=== PATIENT | female | born 1945 | race Caucasian/White ===

== ENCOUNTER 2019-07-03 19:10 | Inpatient (IN) | payer MEDICARE ==
[~2019-07-03] VITALS: Ht 162.6 cm; Wt 45.4 kg
[~2019-07-03 19:10] MED LIST: ADVAIR 250-501 EACH INH; ASPIR 8181 MG PO; ATROVENT15 ML; ENDOCET 10-3251 EACH PO; FLOVENT DISKUS50 MCG; LEVALBUTER1.25 MG/3 INH; LOVASTATIN40 MG PO; MECLIZINE HCL12.5 MG PO; MEGACE ES625 MG/5 M PO; MEGESTROL400 MG/10 PO; METOPROLOL SUCC25 MG PO; MIRTAZAPINE15 MG PO; MOVANTIK PO; NALOXEGOL PO; NEXIUM40 MG PO; NICODERM CQ1 EAC1 TD; RANITIDINE HCL300 MG PO; TORSEMIDE10 MG PO; VASOTEC10 M1 PO; VASOTEC10 MG PO; ZOFRAN ODT4 MG PO
[2019-07-03] MEDS ORDERED: ALBUTEROL/IPRATROPIUM 3 ML NEB ONE (19:53)
[2019-07-03 19:56] LABS: BASOPHILS # (AUTO) 0.1 (0.0-0.1); BASOPHILS % 0.7 % (0.0-1.0); EOSINOPHILS # (AUTO) 0.1 (0.0-0.4); EOSINOPHILS % 0.4 % (0.0-6.0); HEMATOCRIT 39.4 % (34.2-44.1); HEMOGLOBIN 11.3 g/dL (12.0-16.0); LYMPHOCYTES # (AUTO) 1.3 (1.0-3.2); LYMPHOCYTES % 10.8 % (18.0-39.1); MEAN CORPUSCULAR HEMOGLOBIN 28.2 pg (28-32); MEAN CORPUSCULAR HGB CONC 28.7 g/dL (31-35); MEAN CORPUSCULAR VOLUME 98.3 fL (81-99); MONOCYTES # (AUTO) 0.6 (0.2-0.8); MONOCYTES % 5.5 % (4.4-11.3); NEUTROPHILS # (AUTO) 9.4 (2.1-6.9); NEUTROPHILS % 81.6 % (38.7-80.0); PLATELET COUNT 254 x10e3/uL (140-360); RED BLOOD COUNT 4.01 x10e6/uL (3.6-5.1); RED CELL DISTRIBUTION WIDTH 18.5 % (11.7-14.4)
[2019-07-03 19:58] LABS: ABG HCO3 43 mmol/L (23-28); ABG PCO2 110 mmHg (41-51); ABG PO2 56 mmHg (80-105)
[2019-07-03] MEDS ORDERED: ALBUTEROL/IPRATROPIUM 3 ML NEB NEB ONE (20:00)
--- NOTE | 2019-07-03 20:09 | Diagnostic Imaging Report ---
Examination: Single AP view of the chest. COMPARISON: Portable AP chest 10/02/2016 INDICATION: Shortness of breath IMPRESSION: 1. Lines and Tubes: None 2. Stable hyperinflated lungs consistent with emphysematous changes. Stable mild prominence of the interstitial markings likely reflecting chronic interstitial changes. Stable bilateral apical mild scarring. No consolidation or effusion. 3. Cardiomediastinal silhouette is normal. Pulmonary vasculature is normal. Tortuous aorta. Atherosclerotic calcification of the aortic arch. 4. No acute bony abnormalities. Signed by: Dr. Franc Younger M.D. on 07/03/2019 8:06 PM
[2019-07-03] MEDS ORDERED: CEFEPIME HCL 1 GM VIAL IV SCH (20:45)
[2019-07-03] MEDS ORDERED: AZITHROMYCIN 500MG/NS 250 ML 250 ML IV ONE (20:45)
[2019-07-03] MEDS ORDERED: CEFEPIME 1GM/NS 0.9% 50 ML 50 ML IV ONE (20:45)
[2019-07-03 20:49] LABS: CLARITY,URINE CLOUDY (CLEAR); COLOR,URINE YELLOW (YELLOW); LEUKOCYTE ESTERASE ,URINE SMALL (NEGATIVE)
[2019-07-03 20:50] LABS: BILIRUBIN,URINE NEGATIVE (NEGATIVE); KETONES,URINE NEGATIVE (NEGATIVE); NITRITE,URINE NEGATIVE (NEGATIVE); PROTEIN,URINE DIPSTICK 2+ (NEGATIVE); URINE UROBILINOGEN 0.2 mg/dL (0.2 - 1)
[2019-07-03 20:50] LABS: ABG HCO3 44 mmol/L (23-28); ABG PCO2 101 mmHg (41-51); ABG PH 7.24 (7.31-7.41); ABG PO2 90 mmHg (80-105)
[2019-07-03 21:05] LABS: BACTERIA,URINE MODERATE /HPF; EPITHELIAL CELLS,URINE MANY /LPF; RBC,URINE 21-50 /HPF (0-5)
[2019-07-03] MEDS ORDERED: SODIUM CHLORIDE 0.9% 1000ML 1,000 ML IV ONE (21:15)
[2019-07-03] MEDS ORDERED: SODIUM CHLORIDE 0.9% 1000ML 1,000 ML ONE (21:16)
[2019-07-03 21:26] LABS: ALBUMIN 3.1 g/dL (3.5-5.0); ALBUMIN/GLOBULIN RATIO 0.7 (0.8-2.0); ANION GAP 19.8 mmol/L (8-16); CALCIUM 9.2 mg/dL (8.4-10.2); CREATININE, SERUM 1.22 mg/dL (0.57-1.11); POTASSIUM 4.8 mmol/L (3.5-5.1)
[2019-07-03 21:32] LABS: CREATINE KINASE MB 2.6 ng/mL (0-5.0)
[2019-07-03] MEDS ORDERED: ENALAPRIL MALEA20 MG PO (22:59)
[2019-07-03] MEDS ORDERED: ALBUTEROL/IPRATROPIUM 3 ML NEB NEB PRN (23:00)
[2019-07-03] MEDS ORDERED: BACLOFEN5 MG PO (23:04)
[2019-07-03] MEDS ORDERED: TRELEGY ELLIPT1 EACH INH (23:04)
[2019-07-03 23:45] VITALS: BP_SYST 145; BP_SYST 149; BP_DIAS 106; BP_DIAS 92
[2019-07-04] VITALS (25 sets, daily range): BP systolic 99–202; BP diastolic 45–145
[2019-07-04 01:13] LABS: ABG PH 7.28 (7.31-7.41)
[2019-07-04 01:14] LABS: ABG HCO3 42 mmol/L (23-28); ABG PCO2 90 mmHg (41-51); ABG PO2 88 mmHg (80-105)
[2019-07-04] MEDS ORDERED: CEFEPIME 1GM/NS 0.9% 50 ML 50 ML IV ONE (01:32)
[2019-07-04 02:51] LABS: ABG HCO3 43 mmol/L (23-28); ABG PCO2 83 mmHg (41-51); ABG PH 7.32 (7.31-7.41); ABG PO2 80 mmHg (80-105)
[2019-07-04] MEDS ORDERED: CEFEPIME HCL 1 GM VIAL IV SCH (03:00)
[2019-07-04 05:37] LABS: BASOPHILS % 0.4 % (0.0-1.0); EOSINOPHILS # (AUTO) 0.1 (0.0-0.4); EOSINOPHILS % 1.2 % (0.0-6.0); HEMATOCRIT 32.8 % (34.2-44.1); HEMOGLOBIN 9.5 g/dL (12.0-16.0); LYMPHOCYTES # (AUTO) 1.6 (1.0-3.2); LYMPHOCYTES % 14.6 % (18.0-39.1); MEAN CORPUSCULAR HEMOGLOBIN 27.9 pg (28-32); MEAN CORPUSCULAR VOLUME 96.5 fL (81-99); MONOCYTES # (AUTO) 0.9 (0.2-0.8); MONOCYTES % 8.1 % (4.4-11.3); NEUTROPHILS # (AUTO) 8.3 (2.1-6.9); NEUTROPHILS % 75.2 % (38.7-80.0); PLATELET COUNT 190 x10e3/uL (140-360); RED CELL DISTRIBUTION WIDTH 18.4 % (11.7-14.4)
[2019-07-04 05:45] LABS: ANION GAP 13.3 mmol/L (8-16); BLOOD UREA NITROGEN 12 mg/dL (7-26); BUN/CREATININE RATIO 13 (6-25); CALCIUM 8.4 mg/dL (8.4-10.2); CARBON DIOXIDE 37 mmol/L (22-29); CHLORIDE 95 mmol/L (98-107); EST GLOMERULAR FILTRATION RATE > 60 ML/MIN (60-); GLUCOSE 80 mg/dL (74-118); POTASSIUM 4.3 mmol/L (3.5-5.1); SODIUM 141 mmol/L (136-145)
--- NOTE | 2019-07-04 06:24 | NUR ---
Consult called to Dr Peña. I spoke to Shahbaz
[2019-07-04] MEDS ORDERED: ACETAMINOPHEN PO PRN (06:45)
[2019-07-04] MEDS ORDERED: OXYCODONE HCL PO PRN (06:45)
[2019-07-04] MEDS ORDERED: MOVANTIK 25 MG PO PRN ×2 (06:45→07:15)
[2019-07-04] MEDS ORDERED: ONDANSETRON HCL 4 MG ORAL DISINTEGRATING TAB PO PRN (06:45)
[2019-07-04] MEDS ORDERED: BACLOFEN PO PRN (06:45)
[2019-07-04] MEDS ORDERED: SODIUM CHLORIDE 0.9% 1000ML 1,000 ML IV SCH (07:00)
[2019-07-04] MEDS ORDERED: BACLOFEN 10 MG TAB PO PRN (07:00)
[2019-07-04] MEDS: TORSEMIDE 10 MG TAB PO SCH (09:00)
[2019-07-04] MEDS ORDERED: FAMOTIDINE 20 MG/2 ML VIAL IV SCH (09:00)
[2019-07-04] MEDS ORDERED: ENOXAPARIN SODIUM INJ 100 MG/ML SYR SC SCH (09:00)
[2019-07-04] MEDS ORDERED: ENALAPRIL MALEATE 40 MG PO SCH (09:00)
[2019-07-04] MEDS ORDERED: MECLIZINE HCL 12.5 MG TAB PO SCH (09:00)
[2019-07-04] MEDS ORDERED: LEVALBUTEROL HCL SOLN NEBU 1.25 MG/3 ML NEB INH SCH (09:00)
[2019-07-04] MEDS: PANTOPRAZOLE SOD 40 MG TABEC PO SCH (09:28)
[2019-07-04] MEDS: METOPROLOL SUCCINATE 25 MG TAB XL PO SCH (09:29)
[2019-07-04] MEDS: ENALAPRIL MALEATE 10 MG TAB PO SCH (09:29)
[2019-07-04] MEDS: ENOXAPARIN 30 MG/0.3 ML SYR SC SCH (09:30)
[2019-07-04] MEDS: OXYCODONE/ACETAMINOPHEN 5-325 1 EACH TABLET PO PRN ×2 (09:31→17:54)
[2019-07-04] MEDS: CEFEPIME 1GM/NS 0.9% 50 ML 50 ML IV SCH (11:00)
[2019-07-04 11:13] LABS: % IRON SATURATION 14 % (15-50); IRON 28 ug/dL (50-170); TOTAL IRON BINDING CAPACITY 203 ug/dL (261-478); TRANSFERRIN 145 mg/dL (180-382)
[2019-07-04] MEDS ORDERED: FUROSEMIDE INJ 10 MG/ML 2 ML VIAL IV NR (11:15)
[2019-07-04] MEDS ORDERED: METHYLPREDNISOLONE SOD SUCC 40 MG/ML VIAL 1ML IV SCH (12:00)
[2019-07-04] MEDS: LEVALBUTEROL HCL SOLN NEBU 1.25 MG/3 ML NEB INH SCH ×3 (13:45→22:00)
[2019-07-04] MEDS: IPRATROPIUM BROMIDE 0.02% 2.5 ML NEB NEB SCH ×2 (14:20→19:10)
--- NOTE | 2019-07-04 15:18 | History and Physical ---
The patient is a 74-year-old female, who comes in with acute respiratory failure. HISTORY OF PRESENTING ILLNESS: This is Ms. Tamera Reddy with a history of severe end-stage COPD, was in usual state of health until the patient started to decline with lower oxygen saturation up to 80% to 85% at home on 2 L of oxygen. She cracked up her oxygen and called the office yesterday. The patient seemed to be very hypoxic and was told to go to the emergency room. The patient arrived and was found to have acute respiratory failure, put on BiPAP and sent to the ICU. PAST MEDICAL HISTORY: History of hypertension, history of end-stage COPD, history of cachexia with severe protein-energy malnutrition, history of depression, history of nicotine dependence, history of chronic low back pain, and history of hypotension. MEDICATIONS: She takes at home, baclofen 5 mg t.i.d. enalapril 40 mg daily, esomeprazole 40 mg daily, and fluticasone 50 mcg daily. The patient takes ipratropium bromide 50 mL spray twice a day nasal spray and also does levalbuterol 1.25 inhalations q.4 hours, meclizine 12.5 mg as needed for dizziness, megestrol 400 mg for malnutrition, metoprolol 25 mg ER, mirtazapine 50 mg daily, Zofran q.6 hours as needed, oxycodone for pain management q.6 hours, ranitidine 300 mg at bedtime, and torsemide 10 mg. The patient also takes Movantik 25 mg for opioid-induced constipation. PAST SURGICAL HISTORY: Cholecystectomy and the patient had hysterectomy too. FAMILY HISTORY: Positive for stroke and also COPD. ALLERGIES: NO DRUG ALLERGIES. REVIEW OF SYSTEMS: Positive for shortness of breath. No chest pain. No nausea, vomiting, or diarrhea. Positive for some constipation. No rectal bleeding. No hematochezia. No hematemesis either. PHYSICAL EXAMINATION: GENERAL: The patient is severely cachectic, short of breath, and hypoxic. HEENT: Normocephalic and atraumatic. BiPAP is in place. CVS: S1 and S2, tachy. Ejection systolic murmur present. LUNGS: Decreased air entry into all lung morales. Positive audible expiratory wheezes. ABDOMEN: Nontender and nondistended. EXTREMITIES: No clubbing, no cyanosis, and/or no edema. LABORATORY VALUES: Initial white count is 11,000, hemoglobin of 11.3, and hematocrit of 39.4. Chemistry shows sodium of 140, potassium of 4.8, BUN of 14, and creatinine of 1.22. Lactic acid initially was 3.9 and BNP was 1313. Urine shows yellow cloudy with white count and rbc's present. MICROBIOLOGY: Blood cultures are pending. IMAGING STUDIES: Chest x-ray showed stable hyperinflated lungs consistent with emphysematous changes, mediastinal silhouette is normal. Pulmonary vasculature is normal. ASSESSMENT: Tamera Reddy with, 1. Severe sepsis. 2. Chronic obstructive pulmonary disease exacerbation. 3. End-stage chronic obstructive pulmonary disease with O2 dependency. 4. Hypertension. 5. Cachexia. 6. Severe protein-energy malnutrition. 7. Acute renal injury. 8. Generalized debility with deconditioning. PLAN: The patient is currently on cefepime and azithromycin. She will be started on enoxaparin for DVT prophylaxis. She has been given some fluid replacement and resuscitation. The patient has been put on GI prophylaxis with her esomeprazole and restart her home medications and Protonix daily will be given. The patient is back on albuterol and azithromycin has been started. The patient is also on Solu-Medrol 40 mg q.6 hours as needed. Further recommendation per clinical course. A consult with Dr. Peña has been done. The patient will be in the hospital and kept in ICU at this point of time. For further information, look in the chart. MD KARLA Gill/MODL /[id number]
[2019-07-04] MEDS ORDERED: FUROSEMIDE INJ 10 MG/ML 4 ML VIAL IV NR (16:00)
--- NOTE | 2019-07-04 18:19 | Consultation ---
DATE OF CONSULTATION: 07/04/2019 Pulmonary Consultation The patient of Dr. Carmelo Singletary. HISTORY OF PRESENT ILLNESS: Charming, but unfortunate 74-year-old woman admitted with progressive shortness of breath over 24 hours; productive cough; hypertension; history of COPD, stopped smoking, using e-cigarettes and then with the e-cigarette adverse reaction reports she started smoking back again; has home oxygen. Daughter is a respiratory therapist. Her legs have been swollen for six months despite home oxygen. No known allergies. She was told not to take iodine because of decline in renal function and history of stable aortic aneurysm. PAST SURGICAL HISTORY: She has had gallbladder surgery and hysterectomy. SOCIAL HISTORY: She is driving a school bus. Born in [place]. FAMILY HISTORY: Positive for unknown cancers. PHYSICAL EXAMINATION: GENERAL: This is a frail white female, in no acute distress, on BiPAP. VITAL SIGNS: Temperature 97.5, pulse 108 and regular, respirations 25, and blood pressure 132/80. HEAD: Normocephalic and atraumatic. Some temporal wasting. LUNGS: Diminished breath sounds bilaterally. HEART: Regular rhythm. ABDOMEN: Nontender. EXTREMITIES: Edematous. IMPRESSION: 1. Mild cellulitis. 2. Urinary tract infection. 3. Purulent bronchitis. 4. Respiratory failure. PLAN: Moderate dose course of steroids, antibiotics, and bronchodilator. Cigarette smoking cessation. Prophylactic Lovenox. Echocardiogram and venous Doppler pending. Thank you for this kind referral. MD RADHA Franklin/DANYELL /[id number]
[2019-07-04] MEDS: METHYLPREDNISOLONE SOD SUCC 40 MG/ML VIAL 1ML IV SCH (19:00)
[2019-07-04] MEDS: MIRTAZAPINE 15 MG TAB PO SCH (20:43)
[2019-07-04] MEDS ORDERED: AZITHROMYCIN 500MG/NS 250 ML 250 ML IV SCH (23:00)
[2019-07-05] VITALS (24 sets, daily range): BP systolic 97–172; BP diastolic 53–100
[2019-07-05] MEDS: OXYCODONE/ACETAMINOPHEN 5-325 1 EACH TABLET PO PRN ×3 (01:10→19:14)
[2019-07-05] MEDS: IPRATROPIUM BROMIDE 0.02% 2.5 ML NEB NEB SCH ×4 (01:15→20:15)
[2019-07-05 05:54] LABS: BASOPHILS % 0.3 % (0.0-1.0); EOSINOPHILS # (AUTO) 0.1 (0.0-0.4); EOSINOPHILS % 1.7 % (0.0-6.0); HEMATOCRIT 34.6 % (34.2-44.1); HEMOGLOBIN 10.2 g/dL (12.0-16.0); LYMPHOCYTES # (AUTO) 0.6 (1.0-3.2); LYMPHOCYTES % 10.6 % (18.0-39.1); MEAN CORPUSCULAR HEMOGLOBIN 27.6 pg (28-32); MEAN CORPUSCULAR HGB CONC 29.5 g/dL (31-35); MEAN CORPUSCULAR VOLUME 93.8 fL (81-99); MONOCYTES # (AUTO) 0.3 (0.2-0.8); MONOCYTES % 4.7 % (4.4-11.3); NEUTROPHILS # (AUTO) 4.9 (2.1-6.9); NEUTROPHILS % 82.5 % (38.7-80.0); PLATELET COUNT 183 x10e3/uL (140-360); RED BLOOD COUNT 3.69 x10e6/uL (3.6-5.1); RED CELL DISTRIBUTION WIDTH 18.3 % (11.7-14.4)
[2019-07-05] MEDS: METHYLPREDNISOLONE SOD SUCC 40 MG/ML VIAL 1ML IV SCH ×2 (06:09→18:48)
[2019-07-05 06:44] LABS: ALBUMIN 2.9 g/dL (3.5-5.0); ALBUMIN/GLOBULIN RATIO 0.8 (0.8-2.0); ALKALINE PHOSPHATASE 65 IU/L (40-150); ANION GAP 15.5 mmol/L (8-16); BLOOD UREA NITROGEN 12 mg/dL (7-26); BUN/CREATININE RATIO 11 (6-25); CALCIUM 8.6 mg/dL (8.4-10.2); CHLORIDE 83 mmol/L (98-107); CREATININE, SERUM 1.13 mg/dL (0.57-1.11); EST GLOMERULAR FILTRATION RATE 47 ML/MIN (60-); GLUCOSE 108 mg/dL (74-118); POTASSIUM 4.5 mmol/L (3.5-5.1); SODIUM 140 mmol/L (136-145)
[2019-07-05 06:52] LABS: ALANINE AMINOTRANSFERASE < 6 IU/L (0-55); CARBON DIOXIDE 46 mmol/L (22-29)
[2019-07-05] MEDS: LEVALBUTEROL HCL SOLN NEBU 1.25 MG/3 ML NEB INH SCH ×3 (07:00→20:15)
[2019-07-05] MEDS: METOPROLOL SUCCINATE 25 MG TAB XL PO SCH (07:55)
[2019-07-05] MEDS: ENOXAPARIN 30 MG/0.3 ML SYR SC SCH (07:55)
[2019-07-05] MEDS: PANTOPRAZOLE SOD 40 MG TABEC PO SCH (07:55)
[2019-07-05] MEDS: NICOTINE 14 MG/EA PATCH TOP SCH (07:55)
[2019-07-05] MEDS: AZITHROMYCIN 250 MG TAB PO SCH (07:55)
[2019-07-05] MEDS: ENALAPRIL MALEATE 10 MG TAB PO SCH (07:55)
[2019-07-05] MEDS ORDERED: FUROSEMIDE 20 MG TAB PO SCH (09:00)
[2019-07-05] MEDS ORDERED: ACETAZOLAMIDE SODIUM 500 MG/VIAL IV NR (09:15)
[2019-07-05] MEDS: TORSEMIDE 10 MG TAB PO SCH (09:40)
--- NOTE | 2019-07-05 09:49 | Progress Note ---
DATE: 07/05/2019 SUBJECTIVE: A 74-year-old female who came in yesterday with respiratory failure. The patient currently is on O2, BiPAP all night long. She is feeling better. Complains of some back pain. Otherwise, no complaints. No chest pain. Positive shortness of breath, back to baseline. MEDICATIONS: She is on: 1. Solu-Medrol 40 mg twice a day. 2. Oxycodone. 3. Cefepime. 4. Mirtazapine 50 mg. 5. Enoxaparin 30 mg. 6. The patient is also on metoprolol 25 mg. 7. Torsemide 10 mg daily. 8. She is taking albuterol/Atrovent treatments while in the hospital. OBJECTIVE: VITAL SIGNS: Temperature is 99.0, pulse of 79, respirations 25, blood pressure is 159/93, and O2 by BiPAP. HEENT: Normocephalic and atraumatic. Pupils are reactive to light and accommodation. CVS: S1 and S2 normal. Regular rate and rhythm. ABDOMEN: Nontender and nondistended. LUNGS: Decreased air entry into all lung morales. Positive for some respiratory wheezes. EXTREMITIES: No clubbing. No cyanosis. Positive for edema. LABORATORY DATA: White count is 5.92, hemoglobin of 10.2, hematocrit of 34.6. Chemistry, sodium is pending. Potassium is pending. Iron was 28, TIBC 203, and transferrin is 14. Blood gases done yesterday; pH 7.3, pCO2 of 83, and PO2 of 80. ASSESSMENT: 1. Acute exacerbation of chronic obstructive pulmonary disease. 2. Urine tract infection. 3. Respiratory failure. 4. Emphysema with exacerbation. 5. Hypertension. 6. Hyperlipidemia. 7. History of nicotine abuse in the past. PLAN: Continue with Solu-Medrol, we will taper off. The patient is on antibiotic. White count is better. Also diagnosis would be sepsis, which is better and leukocytosis is better. The patient is improved. Further recommendation per clinical course. We can transfer out of ICU if okay with Pulmonology. MD KARLA Gill/MODL /[id number]
[2019-07-05] MEDS: CEFEPIME 1GM/NS 0.9% 50 ML 50 ML IV SCH ×3 (11:53→23:00)
--- NOTE | 2019-07-05 16:36 | Consultation ---
DATE OF CONSULTATION: 07/05/2019 Cardiology Consultation REASON FOR CONSULTATION: Evaluate cardiac status. CHIEF COMPLAINT: Shortness of breath, respiratory failure. HISTORY OF PRESENT ILLNESS: Ms. Reddy is a 74-year-old lady with history of hypertension, advanced COPD on 2-3 L of home oxygen at baseline, history of abdominal aortic aneurysm, DJD, and unilateral kidney, who presents to this institution with difficulty breathing, or and in cathy respiratory failure. Her symptoms started approximately 3 days ago where she became short of breath at rest and had difficulty maintaining her breathing. She has had off and on issues with leg swelling and when she came in, she was febrile, feeling malaise, and was septic. She was noted to have worsening erythema and swelling in her both legs as well. Upon arrival, the patient was noted to have ABG showing a pH of 7.1, PCO2 of 110, and PO2 of 56, indicating acute on chronic hypoxic and hypercapnic respiratory failure. She was tried and treated with antibiotics, started on salvage BiPAP therapy and given a dose of IV diuretics with Lasix. Since that time, lower extremity venous duplex done and read by another provider reveals no DVT and echocardiogram reveals preserved left ventricular function; however, she has some evidence of RV dysfunction, likely on account of secondary to her pulmonary status. PAST MEDICAL HISTORY: 1. Advanced COPD, on home oxygen. 2. Abdominal aortic aneurysm, under surveillance. 3. History of diverticulitis. 4. 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 5. History of unilateral kidney. PAST SURGICAL HISTORY: 1. History of hysterectomy. 2. History of cholecystectomy. 3. History of tonsillectomy. FAMILY HISTORY: Mother and father in their 70s. Mom had cervical cancer and hypertension. Father of prostate cancer and hypertension and had a bicuspid aortic valve. SOCIAL HISTORY: She is a current smoker, started in her teens, heavy extensive use. Denies any alcohol or illicit drug use. ALLERGIES: NO KNOWN DRUG ALLERGIES. HOME MEDICATIONS: Includes baclofen 5 mg b.i.d. p.r.n., enalapril 40 mg daily, Nexium 40 mg daily, Flovent b.i.d., Advair Diskus b.i.d., Trelegy Ellipta inhaled p.r.n., Atrovent p.r.n., meclizine 12.5 mg t.i.d., Megace 625 mg daily, Toprol-XL 25 mg daily, mirtazapine 50 mg every night at bedtime, nicotine patch p.r.n., Zofran p.r.n., Endocet 10/325 q. 6 hours p.r.n., and Zantac 300 mg at bedtime, and torsemide 10 mg daily. REVIEW OF SYSTEMS: GENERAL: Positive for fevers, chills, and malaise. HEENT: No headaches, visual complaints, sore throat, or stuffy nose. RESPIRATORY: Denies any pleuritic chest pain. Has cough and wheezing and severe shortness of breath. CARDIOVASCULAR: Denies any chest pain or palpitations. No syncope or near syncope. GI: Denies any abdominal pain. No bright red blood per rectum, melena, hematemesis, nausea, or vomiting. : Denies any dysuria, pyuria, change in urinary frequency. MUSCULOSKELETAL: Positive for severe neck and lumbar spine DJD and generalized weakness. NEUROLOGIC: Positive for generalized weakness. No seizures, headache, TIA, or stroke. SKIN: Positive for rash in her legs and swelling. The remainder of review of systems negative otherwise as mentioned. PHYSICAL EXAMINATION: VITAL SIGNS: Height of 64 inches, weight of 100 pounds, BMI 17.2. Temperature of 98.0, pulse of 98, respiratory rate of 23, blood pressure 170/94, O2 sat 100% on 3 L nasal cannula. GENERAL: This is a frail lady, skinny, emaciated, appears older than stated age. HEENT: Normocephalic and atraumatic. Pupils are equal, round and reactive to light. Extraocular movements are intact. Oropharynx is clear. NECK: No elevation of jugular venous pulsation. Faint bilateral carotid bruits. CARDIOVASCULAR: Regular rate and rhythm. Normal S1, S2. Positive S4 gallop. Right-sided 1/6 systolic murmur at the left lower sternal border lungs show very poor air flow and diminished air entry and scattered wheezing throughout the lung morales. Advanced COPD changes. ABDOMEN: Skinny, scaphoid, nontender. Normoactive bowel sounds. No hepatosplenomegaly. There is old cholecystectomy scar. BACK: No costovertebral angle tenderness. EXTREMITIES: Are warm with 2+ edema below the knees and there is erythema and rubor to the mid moscoso levels bilaterally. NEUROLOGIC: Strength is 4+ to 5- out of 5 in all four extremities. She is alert and oriented. Cranial nerves 2 through 12 seem intact. Remainder of physical exam negative, otherwise mentioned. LABORATORY DATA: White count of 5.9, hemoglobin 10.2, hematocrit 34.6, and platelets of 183. Sodium 140, potassium 4.5, chloride 83, bicarb 46, BUN 12, creatinine 1.13, glucose of 108, calcium of 8.6, AST 16, ALT less than 6, alkaline phosphatase 65, total protein is 6.6, albumin of 2.9. Troponin is 0.049. BNP upon arrival was 1314. Chest x-ray reveals severe emphysematous changes. EKG reveals sinus rhythm, right bundle-branch block and no ST-T wave changes. DIAGNOSES: 1. [id number] hypoxic and hypercapnic respiratory failure. 2. Acute exacerbation of chronic bronchitis. 3. Sepsis, cellulitis. 4. Acute on chronic cor pulmonale with right-sided heart failure symptoms. 5. History of abdominal aortic aneurysm. 6. Smoker precontemplative to quitting. 7. Weakness, debility. 8. Moderate protein-calorie malnutrition. PLAN/RECOMMENDATIONS: 1. From a cardiovascular standpoint, treatment is going to be largely supportive. We will continue antihypertensive therapy with her home regimen and continue her low-dose torsemide therapy. 2. The patient responded well to 88 mg of IV Lasix x1 with improvement in lower extremity edema. 3. Noted significantly elevated bicarb and will give acetazolamide to hopefully improve her acid base status. 4. Agree with antibiotic therapy for her underlying infection. 5. We will continue to follow this patient. MD SHANTANU Guadalupe/DANYELL /[id number] KAROL
--- NOTE | 2019-07-05 18:30 | NUR ---
patient transferred to floor. report called to Yessenia SARABIA. vitals stable with no distress at time of transfer.
--- NOTE | 2019-07-05 20:00 | NUR ---
INTIIAL ASSESSMENT COMPLETE, PT IN BED, BEDBOUND AT THIS TIME, RODRIGUEZ CATH DRAINING URINE, TELE ON PT, IV INTACT, DRESSING TO SACRAL WOUND INTACT, VS STABLE, NO DISTRESS NOTED, FAMILY AT BEDSIDE, CALL LIGHT IN REACH.
[2019-07-05] MEDS: MIRTAZAPINE 15 MG TAB PO SCH (21:00)
[2019-07-05] MEDS ORDERED: SODIUM CHLORIDE 0.9% 500ML 500 ML ONE (21:16)
[2019-07-06] VITALS (8 sets, daily range): BP systolic 117–151; BP diastolic 58–78
[2019-07-06] MEDS: IPRATROPIUM BROMIDE 0.02% 2.5 ML NEB NEB SCH ×4 (00:15→19:15)
--- NOTE | 2019-07-06 06:19 | NUR ---
pt awakens when spoke to, vs stable, no distress noted, o2 2l nc on pt, tele on pt as well, call light in reach, told to call for needs.
[2019-07-06 06:24] LABS: HEMATOCRIT 34.3 % (34.2-44.1); LYMPHOCYTES # (AUTO) 0.6 (1.0-3.2); LYMPHOCYTES % 10.7 % (18.0-39.1); MEAN CORPUSCULAR HGB CONC 29.2 g/dL (31-35); MEAN CORPUSCULAR VOLUME 92.7 fL (81-99); MONOCYTES # (AUTO) 0.3 (0.2-0.8); MONOCYTES % 5.9 % (4.4-11.3); NEUTROPHILS # (AUTO) 4.4 (2.1-6.9); PLATELET COUNT 175 x10e3/uL (140-360); RED CELL DISTRIBUTION WIDTH 18.6 % (11.7-14.4)
[2019-07-06] MEDS: METHYLPREDNISOLONE SOD SUCC 40 MG/ML VIAL 1ML IV SCH ×3 (06:30→16:40)
[2019-07-06 06:44] LABS: ALBUMIN 2.6 g/dL (3.5-5.0); ALBUMIN/GLOBULIN RATIO 0.8 (0.8-2.0); ANION GAP 11.4 mmol/L (8-16); CALCIUM 8.5 mg/dL (8.4-10.2); CREATININE, SERUM 1.21 mg/dL (0.57-1.11); POTASSIUM 3.4 mmol/L (3.5-5.1)
--- NOTE | 2019-07-06 06:54 | NUR ---
received am report and rounds done. pt is alert resting in bed, no s/s of distress. oxygen is at 3l via NC. call light within reach and instructed pt to call RN for help. bed safety implemented.
[2019-07-06] MEDS: LEVALBUTEROL HCL SOLN NEBU 1.25 MG/3 ML NEB INH SCH ×3 (07:00→19:15)
--- NOTE | 2019-07-06 07:31 | Progress Note ---
DATE: 07/06/2019 SUBJECTIVE: The patient is stable on albuterol and Atrovent treatment. She is currently getting steroids. The patient is feeling much better compared to when coming in. No chest pain. Positive for shortness of breath. No nausea, vomiting, or diarrhea. OBJECTIVE: VITAL SIGNS: Temperature is 96.1, pulse of 84, respirations of 18, blood pressure is 142/76. HEENT: Normocephalic, atraumatic. Pupils are reactive to light and accommodation. Cachectic. CVS: S1 and S2 normal. Regular rate and rhythm. ABDOMEN: Nontender, nondistended, scaphoid. EXTREMITIES: No clubbing, no cyanosis, no edema. LABORATORY VALUES: Today's white count is 5.24, hemoglobin of 10, hematocrit of 34.3, neutrophil count is 83. ASSESSMENT: Ms. Tamera Reddy is a 74-year-old with: 1. Acute exacerbation of chronic obstructive pulmonary disease. 2. Urinary tract infection. 3. Respiratory failure. 4. Emphysema. 5. Hypertension. 6. Hyperlipidemia. 7. History of smoking in the past. PLAN: Plan would be to have physical therapy come and walk her today. We will continue monitoring her O2 status. The patient will need physical therapy and SNF for continuum of care. For weakness and debility, she will need physical therapy and SNF. Further recommendation per clinical course. We will continue to monitor the patient. The patient's microbiology, urine culture and blood cultures have so far been negative. For further information, look into the chart. Discharge planning with physical therapy and SNF. MD KARLA Gill/MODL /[id number]
[2019-07-06] MEDS: OXYCODONE/ACETAMINOPHEN 5-325 1 EACH TABLET PO PRN ×2 (08:20→16:40)
[2019-07-06] MEDS: TORSEMIDE 10 MG TAB PO SCH (08:21)
[2019-07-06] MEDS: PANTOPRAZOLE SOD 40 MG TABEC PO SCH (08:21)
[2019-07-06] MEDS: AZITHROMYCIN 250 MG TAB PO SCH (08:22)
[2019-07-06] MEDS: METOPROLOL SUCCINATE 25 MG TAB XL PO SCH (08:22)
[2019-07-06] MEDS: ENALAPRIL MALEATE 10 MG TAB PO SCH (08:22)
[2019-07-06] MEDS: NICOTINE 14 MG/EA PATCH TOP SCH (08:28)
[2019-07-06] MEDS: ENOXAPARIN 30 MG/0.3 ML SYR SC SCH (08:38)
[2019-07-06] MEDS: CEFEPIME 1GM/NS 0.9% 50 ML 50 ML IV SCH ×2 (10:58→23:21)
--- NOTE | 2019-07-06 11:27 | NUR ---
MET W THE PT AT THE BEDSIDE. DISCUSSED SNF'S. PT STATES HER DAUGHTER MAKES THE DECISIONS FOR HER. STATES SHE WILL BE IN AFTER NOON. FRIENDS AT THE BEDSIDE. LIST OF IN NETWORK SNF'S GIVEN AND OFFERED OUT OF NETWORK AN OPTION ALSO. CM LEFT BUSINESS CARD FOR ANY QUESTIONS. WILL F/U W CHOICE AFTER DTR REVIEW LIST.
--- NOTE | 2019-07-06 13:01 | NUR ---
WOUND CARE CONSULT FOR 74 YO FEMALE HX ACUTE RESPIRATORY FAILURE ART 15 ON MODERATE PUP ALTERNATING PRESSURE MATTRESS LABS: WBC- 5.24,HGB- 10 , GLUCOSE - 117 BLOOD CULTURE NEGATIVE VENOUS STUDY PENDING VENOUS DOPPLER SHOWS NO THROMBUS SKIN ASSESSMENT COMPLETE PATIENT PRESENTS WITH STAGE 2 ULCERATION RIGHT INNER BUTTOCKS PATIENT ALSO HAS SOME DESTINI REDNESS R/T MOISTURE RECOMMENDATIONS: NURSING TO CONTINUE TO MAINTAIN MODERATE PUP STATUS AND INTERVENTIONS WITH ALTERNATING PRESSURE SURFACE NURSING TO CONTINUE TO ASSIST PATIENT OUT OF BED FOR MEALS AND MUCH TOLERATED NURSING TO APPLY REMEDY MOISTURE BARRIER CREAM TO DESTINI AREA DAILY AND PRN AFTER DESTINI CARE FOR DENUDED DESTINI AREA SKIN NURSING TO APPLY DAILY VENELEX OINTMENT TO RIGHT BUTTOCKS AND COVER WITH ALLEVYN FOAM DRESSING Addendum: 07/06/19 at 1318 by Dionte Jones RN Amended: Links added.
[2019-07-06] MEDS: BALSAM PERU/CASTOR OIL 60 GM OINT...G. TP SCH (15:00)
--- NOTE | 2019-07-06 15:15 | NUR ---
MET W THE PT AND FRIEND AT THE BEDSIDE. PT CHOSE [facility]. CALL TO [facility] @ [phone]. STATES SHE WILL SEND MANDI TO P/U THE REFERRAL.
--- NOTE | 2019-07-06 20:02 | NUR ---
Nutrition Intervention Note RD Recommendation(s) for Physician: -Ensure Clear TID for added nutrition -Carlos BID for wound healing -Recommend regular diet The patient meets criteria for unspecified SEVERE protein-calorie malnutrition. Plan of Care: RD following, monitoring for tolerance and adequacy Nutrition reason for involvement: stage [address] Assessment (07/06/19) Pt is a 74 year old female admitted with acute respiratory failure. Pt stated her appetite varies and was eating <50% of meals prior to admission for 3-4 days. Pt per documentation, pt has been consuming 50-75% since 07/04. Pt reported that she had lost 40-50 lbs and used to weigh 145 lbs > 1 year ago. Pt reports some nausea as well as constipation. Pt does like the thicker consistency Ensure and prefers Ensure Clear. Will also provide pt with Carlos BID for wound healing due to stage 2 pressure ulcer to right inner buttocks per wound care note. Will continue to monitor. Principal Problems/Diagnoses: acute respiratory failure PMH: HTN, end stage COPD, cachexia with severe protein kcal malnutrition, depression, nicotine dependence, chronic low back pain, hypotension I/O: 840/700 GI: flat, soft abdomen Skin: stage 2 pressure ulcer right inner buttock per wound care note Labs: (07/06/19) Creat 1.21 Meds: methylprednisolone, lovenox, azithromycin, metroprolol, protonix, zofran Ht: 64 inches Wt: 100 lbs BMI: 17.2 kg/m2 IBW: 120 lbs Malnutrition Evaluation (07/06/19) The patient meets criteria for unspecified SEVERE protein-calorie malnutrition. Energy intake: Pt stated her appetite varies and was eating <50% of meals prior to admission for 3-4 days. Pt per documentation, pt has been consuming 50-75% since 07/04. Weight loss: 31% wt loss > 1 year Muscle loss: moderate/severe clavicle (protruding) and squaring of shoulders Supporting Evidence: Fluid accumulation: +2 edema below the knees per MD note Functional Status: unable to evaluate Nutrition Prescription (Diet Order): Cardiac diet Estimated Nutritional Needs: 0587-8301 calories/day (30-35 kcal/kg CBW) 68-91 g protein/day (1.5-2 g pro/kg CBW) Diet Adequacy: Pt has been eating 50-75% of meals since 07/04 per documentation Tolerance: Tolerating PO Diet Education Needs Assessment: Diet education not indicated. Nutrition Care Level: moderate Nutrition Diagnosis: Severe protein-kcal malnutrition related to chronic illness as evidenced by moderate/severe muscle depletion and moderate fluid accumulation (+2 edema in lower extremities) Goal: Patient will meet 75-100% of estimated needs by follow up Progress: N/A Interventions: -General healthful diet, Schedule Commercial beverage, Recommended Modifications Monitoring/Evaluation: -Total energy intake, Total protein intake, Liquid supplement, Weight change Signed: Gloria Duran RD, LD
--- NOTE | 2019-07-06 20:21 | NUR ---
RECEIVED PT IN BEDAOX3 .TELE SHOWS SR .F/C DRAINING CLEAR YELLOW URINE .LEFT AC 20 G S/L STAGE 2 SACRUM .CALL LIGHT WITH INREACH .CONTINUE TO MONITOR
[2019-07-06] MEDS: MIRTAZAPINE 15 MG TAB PO SCH (20:52)
[2019-07-07] VITALS (8 sets, daily range): BP systolic 117–154; BP diastolic 63–90
[2019-07-07] MEDS: OXYCODONE/ACETAMINOPHEN 5-325 1 EACH TABLET PO PRN ×4 (00:03→19:08)
[2019-07-07] MEDS: IPRATROPIUM BROMIDE 0.02% 2.5 ML NEB NEB SCH ×4 (00:15→19:45)
--- NOTE | 2019-07-07 06:21 | NUR ---
PT RESTING .C/O PAIN AND GIVEN ORDERED PAIN MEDICATION .CALL LIGHT WITH IN REACH .CONTINUE TO MONITOR
[2019-07-07] MEDS: LEVALBUTEROL HCL SOLN NEBU 1.25 MG/3 ML NEB INH SCH ×3 (07:00→19:45)
--- NOTE | 2019-07-07 07:29 | NUR ---
BEDSIDE REPORT GIVEN TO THE ONCOMING NURSE .
--- NOTE | 2019-07-07 08:10 | Progress Note ---
DATE: 07/07/2019 SUBJECTIVE: This is a 74-year-old female who comes in with acute exacerbation of COPD with respiratory failure and history of COPD. The patient is currently feeling much better. Albuterol and Atrovent treatments have been given. The patient is on azithromycin and cefepime, all her other medications have been rate continued. The patient is feeling better, has physical therapy on board and the patient is scheduled to be transferred to SNF. OBJECTIVE: VITAL SIGNS: Temperature is 97.1, pulse of 82, respirations 17, blood pressure is 133/63, and pulse oximetry 95% on 2 L of oxygen. HEENT: Normocephalic and atraumatic. Pupils are reactive to light and accommodation. CVS: S1 and S2 normal. Regular rate and rhythm. ABDOMEN: Nontender and nondistended. EXTREMITIES: No clubbing, no cyanosis, no edema. LABORATORY DATA: Lab values done yesterday were normal hemoglobin of 10, hematocrit of 34.3. Chemistries show CO2 of 44, potassium 3.4, with chloride of 8.4. Urine microbiology cultures, no growth in 36 to 48 hours. ASSESSMENT AND PLAN: 74-year-old female with acute exacerbation of chronic obstructive pulmonary disease, hypercapnia, respiratory failure, emphysema, hypertension, hyperlipidemia, and history of smoking. The patient is consulted for SNF. Physical therapy has been done. We will continue to monitor the patient. The patient can be transferred to SNF when bed available. Continue with physical therapy in SNF. Continue with respiratory therapy in the SNF. Further recommendation per clinical course. We will continue to monitor the patient. MD KARLA Gill/MODL /[id number]
[2019-07-07] MEDS: METOPROLOL SUCCINATE 25 MG TAB XL PO SCH (08:30)
[2019-07-07] MEDS: METHYLPREDNISOLONE SOD SUCC 40 MG/ML VIAL 1ML IV SCH ×2 (08:30→11:33)
[2019-07-07] MEDS: NICOTINE 14 MG/EA PATCH TOP SCH (08:30)
[2019-07-07] MEDS: AZITHROMYCIN 250 MG TAB PO SCH (08:30)
[2019-07-07] MEDS: TORSEMIDE 10 MG TAB PO SCH (08:30)
[2019-07-07] MEDS: BALSAM PERU/CASTOR OIL 60 GM OINT...G. TP SCH (08:30)
[2019-07-07] MEDS: PANTOPRAZOLE SOD 40 MG TABEC PO SCH (08:30)
[2019-07-07] MEDS: ENALAPRIL MALEATE 10 MG TAB PO SCH (08:30)
[2019-07-07] MEDS: ENOXAPARIN 30 MG/0.3 ML SYR SC SCH (08:30)
--- NOTE | 2019-07-07 09:56 | NUR ---
I stopped by to evaluate the patient for pulmonary rehab. The patient is not sure she will have transportation or help for 3 day a week program. She also has a lot of trouble walking or getting around even for very short distances. She said she would prefer trying to get a program where she could do pulmonary rehab at home. I did explain I was not sure if that was something that is available but that i would make a note of it.
[2019-07-07] MEDS ORDERED: SODIUM CHLORIDE 0.9% 250ML 0 ML ONE (10:54)
[2019-07-07] MEDS: CEFEPIME 1GM/NS 0.9% 50 ML 50 ML IV SCH ×2 (11:33→23:58)
--- NOTE | 2019-07-07 11:51 | NUR ---
COMPLETED RTF AND PASRR FAXED TO FACILITY AND PUT COPY WITH PACKET TO COMPLETE TRANSFER
--- NOTE | 2019-07-07 20:25 | NUR ---
RECEIVED PT IN BED AOX3 .DENIES PAIN .NO ACUTE DISTRESS NOTED CALL LIGHT WITH IN REACH .CONTINUE TO MONITOR
[2019-07-07] MEDS: MIRTAZAPINE 15 MG TAB PO SCH (21:49)
[2019-07-08 04:00] VITALS: BP 153/90
[2019-07-08] MEDS: OXYCODONE/ACETAMINOPHEN 5-325 1 EACH TABLET PO PRN ×2 (05:57→12:06)
--- NOTE | 2019-07-08 06:21 | NUR ---
PT C/O PAIN AND GIVEN ORDERED PAIN MEDICATION .CALL LIGHT WITH IN REACH .CONTINUE TO MONITOR
[2019-07-08] MEDS: LEVALBUTEROL HCL SOLN NEBU 1.25 MG/3 ML NEB INH SCH ×2 (07:00→13:15)
[2019-07-08] MEDS: IPRATROPIUM BROMIDE 0.02% 2.5 ML NEB NEB SCH ×3 (07:00→13:15)
--- NOTE | 2019-07-08 07:23 | NUR ---
BEDSIDE REPORT GIVEN TO THE ONCOMING NURSE
--- NOTE | 2019-07-08 07:26 | NUR ---
PATIENT IS AWAKE AND IN STABLE CONDITION WITH NO S/S OF RESPIRATORY DISTRESS- PATIENT STATES SHE RECENTLY RECEIVED PAIN MEDICATION AND CURRENT PAIN LEVEL IS 7/10. TELEMETRY APPLIED. RODRIGUEZ INTACT AND DRAINING; URINE IS PALE AND CLEAR. STAGE 2 SACRUM NOTED. CALL LIGHT IS WITHIN REACH, PATIENT INSTRUCTED TO CALL FOR ASSISTANCE NEEDED.
[2019-07-08 07:32] VITALS: BP 145/79
[2019-07-08] MEDS: NICOTINE 14 MG/EA PATCH TOP SCH (08:30)
[2019-07-08 08:33] LABS: ANION GAP 10.3 mmol/L (8-16); CALCIUM 8.5 mg/dL (8.4-10.2); CREATININE, SERUM 1.31 mg/dL (0.57-1.11); POTASSIUM 3.3 mmol/L (3.5-5.1)
[2019-07-08] MEDS: PANTOPRAZOLE SOD 40 MG TABEC PO SCH (08:35)
[2019-07-08] MEDS: TORSEMIDE 10 MG TAB PO SCH (08:35)
[2019-07-08] MEDS: ENALAPRIL MALEATE 10 MG TAB PO SCH (08:36)
[2019-07-08] MEDS: METOPROLOL SUCCINATE 25 MG TAB XL PO SCH (08:36)
[2019-07-08] MEDS: AZITHROMYCIN 250 MG TAB PO SCH (08:36)
[2019-07-08] MEDS: ENOXAPARIN 30 MG/0.3 ML SYR SC SCH (08:36)
[2019-07-08] MEDS: BALSAM PERU/CASTOR OIL 60 GM OINT...G. TP SCH (08:43)
[2019-07-08] MEDS ORDERED: METHYLPREDNISOLONE SOD SUCC 40 MG/ML VIAL 1ML IV SCH (09:00)
--- NOTE | 2019-07-08 09:59 | Progress Note ---
DATE: 07/08/2019 SUBJECTIVE: The patient is a 74-year-old female who comes in with COPD exacerbation, acute respiratory failure, and hypercapnia. The patient is doing much better. Currently on azithromycin, cefepime, and levalbuterol treatment. The patient is stable, being transferred to SNF. OBJECTIVE: VITAL SIGNS: Temperature is 96.3, pulse of 90, respirations of 20, and pulse oximeter of 96% on 2 L of oxygen. HEENT: Normocephalic, atraumatic. Pupils are reactive to light and accommodation. The patient is cachectic. CVS: Decreased air entry into all lung morales. Positive for respiratory wheezes. EXTREMITIES: No clubbing, no cyanosis, no edema. LABORATORY VALUES: Stable. No labs have been done since the . CO2 was 49. BUN and creatinine of 22 and 1.2. ASSESSMENT: A 74-year-old female with, 1. Chronic obstructive pulmonary disease exacerbation. 2. Hypercapnia. 3. Acute renal failure on chronic renal failure. 4. Hypertension. 5. Emphysema. 6. History of smoking. PLAN: 1. SNF has been evaluated and has been considered. 2. Continue on IV antibiotics. Repeat labs today for her CO2 levels. Further recommendation per clinical course. The patient is stable enough to be transferred to SNF when accepted. MD KARLA Gill/PRISCILAL /[id number]
[2019-07-08 10:21] VITALS: BP 145/79
[2019-07-08] MEDS: CEFEPIME 1GM/NS 0.9% 50 ML 50 ML IV SCH (11:11)
[2019-07-08 12:03] VITALS: BP 112/63
--- NOTE | 2019-07-08 14:16 | NUR ---
CALLED [facility]; SPOKE WITH EARLENE COLÓN AT 1403. TRANSFER REPORT GIVEN AND PATIENT WILL BE GOING TO ROOM 115.
--- NOTE | 2019-07-08 16:29 | NUR ---
PATIENT TRANSFER TO [facility] ROOM 115. PATIENT OFF THE UNIT AT 1555 PER EMS STRETCHER ACCOMPANIED BY 2 PERSON EMS. PATIENT IN STABLE CONDITION WITH NO S/S OF RESPIRATORY DISTRESS. NO PAIN VOICED. IV SALINE LOCKED. RODRIGUEZ INTACT AND DRAINING. TRANSFER PACKET GIVEN TO EMS SERVICE. ALL PERSONAL ITEMS TAKEN BY THE PATIENT'S .
--- OUTSIDE RECORDS SUMMARY | 2019-07-10 11:54 | XMS REPORT ---
Author Author [facility] Address Unknown Phone Unavailable Care Team Providers Care Senior Software Tester Name Role Phone LETICIA JARQUIN Unavailable Unavailable Problems This patient has no known problems. Allergies, Adverse Reactions, Alerts This patient has no known allergies or adverse reactions. Medications This patient has no known medications. Results Test Description Test Time Test Comments Text Results Atomic Results Result Comments CHEST SINGLE (PORTABLE) 2019-07-03 20:05:00 [place] [id number] Patient Name: JERAD HERNÁNDEZ MR #: [id number] : 1945 Age/Sex: 74/F Req #: [id number] Adm Physician: Ordered by: LETICIA JARQUIN DO Report #: [id number] Location: ER Room/Bed: Procedure: [id number] DX/CHEST SINGLE (PORTABLE) Exam Date: 07/03/19 Exam Time: 1950 REPORT STATUS: Signed Examination: Single AP view of the chest. CO MPARISON: Portable AP chest 10/02/2016 INDICATION: Shortness of breath IMPRESSION: 1. Lines and Tubes: None 2. Stable hyperinflated lungs consistent with emphysematous changes. Stable mild prominence of the interstitial markings likely reflecting chronic interstitial changes. Stable bilateral apical mild scarring. No consolidation or effusion. 3. Cardiomediastinal silhouette is normal. Pulmonary vasculature is normal. Tortuous aorta. Atherosclerotic calcification of the aortic arch. 4. No acute bony abnormalities. Signed by: Dr. Kentrell Muniz M.D. on 07/03/2019 8:06 PM Dictated By: KENTRELL MUNIZ MD 05 Transcribed By: YOHANNES on 07/03/192005 COPY TO: LETICIA JARQUIN,
--- NOTE | 2019-08-24 04:46 | Discharge Summary ---
HOSPITAL COURSE: The patient came into the hospital with COPD exacerbation, history of smoking, history of respiratory failure, [id number] and bilateral pedal edema. The patient was started on Solu-Medrol IV, nebulizers were given, neb treatments were given. The patient now is feeling better. Antibiotics were started. The patient also was started on furosemide for fluid in lower extremity. The patient got better. was done. The patient's oxygen saturation got better and once the patient was feeling better, steroids were decreased, antibiotics stopped, and the patient was actually sent to a intermediate facility for SNF for rehab, and steroids were discontinued. For further information, look into the chart. For medicines on discharge, look into the medical reconciliation sheet. FINAL DIAGNOSES: 1. [id number] chronic obstructive pulmonary disease exacerbation. 2. Hypoxia. 3. Hypercapnia. 4. Debility. For further information, look into the chart. MD KARLA Gill/DANYELL /[id number]
== END 2019-07-08 15:56 | DRG 871 ==
LOC: ER 19:10 → ERHOLD 21:07 → ICU 23:37 → MED/SURG3 07-05 18:30
PROVIDERS: ADMIT Family Medicine; ATTEND Family Medicine
DX: A41.9 Sepsis, unspecified organism (principal); I26.09 Other pulmonary embolism with acute cor pulmonale; J96.22 Acute and chronic respiratory failure with hypercapnia; J96.21 Acute and chronic respiratory failure with hypoxia; E43 Unspecified severe protein-calorie malnutrition; N17.9 Acute kidney failure, unspecified; R64 Cachexia; N39.0 Urinary tract infection, site not specified; L03.90 Cellulitis, unspecified; Z68.1 Body mass index [BMI] 19.9 or less, adult; F17.200 Nicotine dependence, unspecified, uncomplicated; I71.4 Abdominal aortic aneurysm, without rupture; J43.9 Emphysema, unspecified; E78.5 Hyperlipidemia, unspecified; M47.892 Other spondylosis, cervical region; M47.896 Other spondylosis, lumbar region; I12.9 Hypertensive chronic kidney disease with stage 1 through stage 4 chronic kidney disease, or unspecified chronic kidney disease; N18.2 Chronic kidney disease, stage 2 (mild); F32.9 Major depressive disorder, single episode, unspecified; R65.20 Severe sepsis without septic shock
CPT/HCPCS: 36415; 36600; 71045; 80048; 80053; 81001; 82550; 82553; 82805; 83540; 83605; 83880; 84466; 84484; 85025; 87040; 87086; 93005; 93306; 93970; 94640; 94660; 97139; 99284; J0456; J0692; J1650; J1940; J2920; J7030; J7040; J7050